=== PATIENT | female | born 1980 | race Caucasian/White ===

== ENCOUNTER 2018-01-25 11:10 | Emergency (ER) | payer SELFPAY ==
[~2018-01-25] VITALS: Ht 165.1 cm; Wt 86.0 kg
[2018-01-25] MEDS ORDERED: OMEP40CA34 MT (11:28)
[2018-01-25] MEDS ORDERED: ONDA8TAB9 PO (11:28)
[2018-01-25] MEDS ORDERED: GABA-531 PO (11:28)
[2018-01-25] MEDS ORDERED: TIZA-19 MT (11:28)
[2018-01-25] MEDS ORDERED: LEVE750T52 PO (11:28)
[2018-01-25 12:58] LABS: BASOPHILS % 1.1 % (0.0-2.0); EOSINOPHILS % 4.8 % (0.0-5.0); HEMATOCRIT. 36.5 % (36.0-48.0); HEMOGLOBIN. 12.5 g/dL (12.0-16.0); LYMPHOCYTES % 31.7 % (20.0-50.0); MEAN CORPUSCULAR HEMOGLOBIN 31.5 pg (28.0-32.0); MEAN CORPUSCULAR VOLUME 91.7 fL (81.0-99.0); NEUTROPHILS % 55.4 % (40.0-76.0); PLATELET 228 x1000/uL (130-400); RED BLOOD CELL COUNT 3.98 mill/uL (4.2-5.4); RED CELL DISTRIBUTION WIDTH 14.1 % (11.6-14.6)
[2018-01-25 13:04] LABS: CHLORIDE 114 mEq/L (98-107)
[2018-01-25] MEDS ORDERED: ACETAMINOPHEN 325MG TABLET PO ONE (13:45)
[2018-01-25 15:23] VITALS: BP 165/93
== END 2018-01-25 15:24 | disposition left against medical advice (07) ==
LOC: ER 11:37
DX: R07.9 Chest pain, unspecified (principal); R51 Headache; I51.9 Heart disease, unspecified; Z90.710 Acquired absence of both cervix and uterus; Z85.42 Personal history of malignant neoplasm of other parts of uterus
CPT/HCPCS: 36415; 80053; 83690; 84484; 85025; 93005; 99285